=== PATIENT | male | born 1990 | race African-American/Black ===

== ENCOUNTER 2023-07-15 23:16 | Emergency (ER) | payer OTHER ==
[~2023-07-15] VITALS: Ht 172.7 cm; Wt 70.5 kg
[2023-07-16 00:21] LABS: LIPASE 27 U/L (12-53)
[2023-07-16 00:23] LABS: ALBUMIN 3.7 G/DL (3.2-5.2); ALKALINE PHOSPHATASE 74 U/L (46-116); ALT/SGPT 15 U/L (7.0-40); AST/SGOT 16 U/L (<34); BILIRUBIN,DIRECT 0.2 MG/DL (<0.4); BILIRUBIN,TOTAL 0.5 MG/DL (0.3-1.2); BLOOD UREA NITROGEN 8 MG/DL (9-23); CALCIUM LEVEL 9.4 MG/DL (8.5-10.1); CARBON DIOXIDE LEVEL 30 MMOL/L (20-31); CHLORIDE LEVEL 101 MMOL/L (98-107); GLOMERULAR FILTRATION RATE > 60.0 (>60); GLUCOSE, FASTING 104 MG/DL (60-100); SODIUM LEVEL 137 MMOL/L (136-145); TOTAL PROTEIN 7.4 G/DL (5.7-8.2)
[2023-07-16 00:31] LABS: BASO % 0.4 % (0.0-1.0); EOS % 0.3 % (0.0-3.0); HEMATOCRIT 44.6 % (42.0-52.0); HEMOGLOBIN 15.2 g/dl (13.5-17.5); LYMPH # 1.6 10^3/uL (1.5-5.0); LYMPH % 20.5 % (24.0-44.0); MEAN CORPUSCULAR HEMOGLOBIN 29.7 pg (27.0-33.0); MEAN CORPUSCULAR HGB CONC 34.1 g/dl (32.0-36.5); MEAN CORPUSCULAR VOLUME 87.1 fl (80.0-96.0); MONO # 0.6 10^3/uL (0.0-0.8); MONO % 8.2 % (2.0-8.0); NEUTROPHILS # 5.4 10^3/uL (1.5-8.5); NEUTROPHILS % 70.5 % (36.0-66.0); PLATELET COUNT, AUTOMATED 259 10^3/uL (150-450); RED BLOOD COUNT 5.12 10^6/uL (4.30-6.10); WHITE BLOOD COUNT 7.7 10^3/uL (4.0-10.0)
[2023-07-16] MEDS ORDERED: PANTOPRAZOLE 40MG VIAL IV ONE (01:30)
[2023-07-16] MEDS ORDERED: NS 1,000 ML IV ONE (01:30)
[2023-07-16] MEDS ORDERED: ONDANSETRON 4MG 2ML VIAL IV ONE (01:30)
[2023-07-16] MEDS ORDERED: ISOVUE-370 76% 100ML VIAL As Ordered ONE (01:37)
[2023-07-16] MEDS ORDERED: MORPHINE 4 MG/ML 1ML VIAL IV ONE (02:00)
[2023-07-16] MEDS ORDERED: MAALOX 30 ML SUSP *UDC PO ONE (02:10)
[2023-07-16] MEDS ORDERED: PROT1TAB2 PO (02:16)
[2023-07-16] MEDS ORDERED: ONDA4TAB6 PO (02:16)
[2023-07-16] MEDS ORDERED: CARA1TAB6 PO (02:16)
[2023-07-16 02:32] VITALS: BP 136/90; TEMP 98.9; O2SAT 100
== END 2023-07-16 02:48 | disposition home or self-care (01) ==
LOC: M ED 23:16
DX: K29.00 Acute gastritis without bleeding (principal); Z79.83 Long term (current) use of bisphosphonates; Z79.810 Long term (current) use of selective estrogen receptor modulators (SERMs); Z79.1 Long term (current) use of non-steroidal anti-inflammatories (NSAID)
CPT/HCPCS: 74177; 80048; 80076; 83690; 85025; 96361; 96374; 96375; 99284; C9113; J2405; Q9967